=== PATIENT | female | born 1985 | race Caucasian/White ===

== ENCOUNTER 2021-12-22 19:56 | Inpatient (IN) | payer MEDICAID, OTHER ==
[~2021-12-22] VITALS: Ht 162.6 cm; Wt 70.4 kg
[~2021-12-22 19:56] MED LIST: [UNRECOGNIZED DRUG - OTHER]
[2021-12-22] MEDS ORDERED: SODIUM CHLORIDE 0.9% 1,000 ML IV ONE (20:45)
[2021-12-22 21:12] LABS: CHLORIDE 85 mEq/L (98-107)
[2021-12-22 21:14] LABS: BASOPHILS % 0.2 % (0.0-2.0); EOSINOPHILS % 0.1 % (0.0-5.0); HEMATOCRIT. 55.8 % (36.0-48.0); HEMOGLOBIN. 18.5 g/dL (12.0-16.0); INR 1.1; LYMPHOCYTES % 14.6 % (20.0-50.0); MEAN CORPUSCULAR HEMOGLOBIN 29.5 pg (28.0-32.0); MEAN CORPUSCULAR VOLUME 89.2 fL (81.0-99.0); MEAN PLATELET VOLUME 9.7 fl (7.4-10.4); MONOCYTES % 9.1 % (2.0-8.0); PLATELET 393 x1000/uL (130-400); PROTHROMBIN TIME 11.4 sec (9.6-11.0); RED BLOOD CELL COUNT 6.26 mill/uL (4.2-5.4); RED CELL DISTRIBUTION WIDTH 14.6 % (11.6-14.6)
[2021-12-22 21:15] LABS: HCG SCREEN NEGATIVE
[2021-12-22 21:19] LABS: ETHANOL BLOOD < 10 mg/dL
[2021-12-23 00:35] LABS: CLARITY URINE TURBID (CLEAR); COLOR URINE YELLOW (YELLOW); KETONES URINE TRACE (NEGATIVE); LEUKOCYTE ESTERASE URINE TRACE (NEGATIVE); NITRITE URINE NEGATIVE (NEGATIVE); OCCULT BLOOD URINE 3+ (NEGATIVE); PROTEIN URINE 3+ (NEGATIVE); SPECIFIC GRAVITY URINE 1.024 (1.005-1.030)
[2021-12-23 00:54] LABS: *BARBITURATES SCREEN URINE NEGATIVE (NEGATIVE); *BENZODIAZEPINES SCREEN URINE NEGATIVE (NEGATIVE); *COCAINE SCREEN URINE NEGATIVE (NEGATIVE); CANNABINOID URINE SCREEN NEGATIVE (NEGATIVE); METHADONE URINE SCREEN NEGATIVE (NEGATIVE); OPIATES URINE SCREEN NEGATIVE (NEGATIVE); PHENCYCLIDINE URINE SCREEN NEGATIVE (NEGATIVE)
[2021-12-23] MEDS ORDERED: CEFTRIAXONE 1 G PREMIX 50 ML IV ONE (01:00)
[2021-12-23 01:24] LABS: *AMPHETAMINES SCREEN URINE PRESUMTIVE POSITIVE (NEGATIVE)
[2021-12-23] MEDS ORDERED: ONDANSETRON HCL 4MG/2ML INJ IV PRN (07:00)
[2021-12-23] MEDS ORDERED: ACETAMINOPHEN 325MG TABLET PO PRN (07:00)
[2021-12-23] MEDS ORDERED: CEFTRIAXONE 1 G PREMIX 50 ML IV SCH (07:00)
[2021-12-23] MEDS: SODIUM CHLORIDE 0.9% 1,000 ML IV SCH ×2 (10:27→21:11)
[2021-12-23 12:00] VITALS: BP 139/94
[2021-12-23 12:30] VITALS: BP 139/94
[2021-12-23] MEDS ORDERED: HYDR-459 PO (14:33)
[2021-12-23] MEDS ORDERED: PROP20TA7 PO (14:33)
[2021-12-23] MEDS ORDERED: TRAZ-252 MT (14:33)
[2021-12-23] MEDS ORDERED: BUPR-46 PO (14:34)
[2021-12-23] MEDS ORDERED: QUET200T30 MT (14:34)
[2021-12-23 16:15] VITALS: BP 153/99
[2021-12-23 16:55] LABS: CHLORIDE 93 mEq/L (98-107)
[2021-12-23 20:00] VITALS: BP 117/89
[2021-12-23] MEDS ORDERED: TRAZODONE HCL 50MG TABLET PO PRN (20:45)
[2021-12-23] MEDS ORDERED: POTASSIUM CHLORIDE 20MEQ TABLET SR PO NR (20:45)
[2021-12-24 00:30] VITALS: BP 115/79
[2021-12-24] MEDS ORDERED: CEFTRIAXONE 1,000 MG in DEXTROSE 5% WATER 50 ML IV SCH (01:00)
[2021-12-24 04:00] VITALS: BP 109/76
[2021-12-24 07:24] LABS: BASOPHILS % 0.2 % (0.0-2.0); EOSINOPHILS % 0.5 % (0.0-5.0); HEMATOCRIT. 41.2 % (36.0-48.0); MEAN CORPUSCULAR HEMOGLOBIN 29.8 pg (28.0-32.0); MEAN PLATELET VOLUME 10.3 fl (7.4-10.4); MONOCYTES % 14.1 % (2.0-8.0); NEUTROPHILS % 61.2 % (40.0-76.0); PLATELET 251 x1000/uL (130-400); RED BLOOD CELL COUNT 4.69 mill/uL (4.2-5.4); RED CELL DISTRIBUTION WIDTH 14.2 % (11.6-14.6)
[2021-12-24 07:54] VITALS: BP_SYST 125; BP_SYST 158; BP_DIAS 71; BP_DIAS 75
[2021-12-24 08:38] LABS: CHLORIDE 100 mEq/L (98-107)
[2021-12-24] MEDS: SODIUM CHLORIDE 0.9% 1,000 ML IV SCH (09:28)
[2021-12-24] MEDS ORDERED: POTASSIUM CHLORIDE 20MEQ TABLET SR PO ONE (11:15)
[2021-12-24 12:00] VITALS: BP 131/94
[2021-12-24] MEDS ORDERED: LEVO500T90 MT (12:09)
[2021-12-24 12:41] VITALS: BP 131/94
[2021-12-24] MEDS ORDERED: AMLO5TAB88 MT (13:48)
[2021-12-24 16:00] VITALS: BP 121/40
[2021-12-24] MEDS ORDERED: MAGNESIUM/ALUMINUM HYDROXIDE/SIMETHICONE 30ML UDC PO NR (17:30)
[2021-12-24] MEDS ORDERED: FAMOTIDINE 20MG TABLET PO NR (17:30)
== END 2021-12-24 19:55 | disposition home or self-care (01) | DRG 463 ==
LOC: ER 19:56 → MICUSO 12-23 01:07 → 6WST 12-23 13:50
PROVIDERS: ADMIT Internal Medicine; ATTEND Internal Medicine
DX: N30.90 Cystitis, unspecified without hematuria (principal); N17.0 Acute kidney failure with tubular necrosis; E87.1 Hypo-osmolality and hyponatremia; E87.8 Other disorders of electrolyte and fluid balance, not elsewhere classified; E87.2 Acidosis; F15.90 Other stimulant use, unspecified, uncomplicated; E83.52 Hypercalcemia; Z20.822 Contact with and (suspected) exposure to COVID-19; F32.A Depression, unspecified; I10 Essential (primary) hypertension; M54.9 Dorsalgia, unspecified; Z91.51 Personal history of suicidal behavior; Z79.899 Other long term (current) drug therapy; Z90.49 Acquired absence of other specified parts of digestive tract; Z71.51 Drug abuse counseling and surveillance of drug abuser
CPT/HCPCS: 36415; 71045; 71250; 74176; 80048; 80053; 80305; 80307; 80320; 80329; 81003; 83605; 83880; 84443; 84484; 84703; 85025; 86850; 86900; 87426; 93005; 99285; J0696; J7030; J7060; G0480